=== PATIENT | female | born 2000 | race Caucasian/White ===

== ENCOUNTER 2023-08-16 18:04 | Emergency (ER) | payer MEDICAID, SELFPAY ==
[2023-08-16] VITALS (16 sets, daily range): BP systolic 128–133; BP diastolic 82–87; PULSE 97–114; RESP 13–25; TEMP 37.1; O2SAT 95–100; BMI 30.9
--- NOTE | 2023-08-16 18:18 | ECG_ITS ---
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
--- NOTE | 2023-08-16 18:23 | ED.CHESTPAI1 ---
HPI - Chest Pain General Chief Complaint: Chest Pain Stated Complaint: CHEST PAIN Time Seen by Provider: 08/16/23 18:12 Source: patient Mode of arrival: walk-in Limitations: no limitations History of Present Illness HPI narrative: Patient is a 23-year-old female who presents to the emergency department for the evaluation of headache, nausea, chest pain that began today. Patient was seen at urgent care prior to arrival and was instructed to come to the emergency department for CT scan because she has a family history of aortic dissection.She has had no fevers, cough, congestion, shortness of breath, vomiting, diarrhea. No other flulike illness or upper respiratory symptoms. She is not concerned for . She states she had similar symptoms in the past which were attributed to being dehydrated. She admits that she does not eat and drink as she should. She reports pain in the left anterior chest just midline to the axilla. This is not worse with deep breathing or movement. Related Data Home Medications Medication Instructions Recorded Confirmed escitalopram oxalate 20 mg tablet 20 mg PO DAILY 08/16/23 08/16/23 (Lexapro) Previous Rx's Medication Instructions Recorded ondansetron 4 mg disintegrating 4 mg PO Q6H PRN nausea and 08/16/23 tablet vomiting #12 tabs Allergies Allergy/AdvReac Type Severity Reaction Status Date / Time No Known Drug Allergies Allergy Verified 08/16/23 18:09 Review of Systems ROS Constitutional Denies: fever or chills Ears, nose, mouth, and throat Denies: throat pain or nasal congestion Cardiovascular Reports: chest pain Respiratory Denies: shortness of breath or cough Gastrointestinal Reports: nausea; Denies: abdominal pain or vomiting Musculoskeletal Denies: back pain Integumentary/Breast Denies: rash Neurological Denies: headache Endocrine Denies: excessive urination [facility] Social History Smoking status: Never smoker Exam Narrative Exam Narrative: Gen.: Awake, alert, in no distress Head: Normocephalic, atraumatic ENT: Moist mucous membranes Respiratory: No respiratory distress, lungs clear bilaterally Cardio: Tachycardia Extremities: Moves extremities equally, No pedal edema Psych: Normal mood and affect Neuro: No focal neuro deficit Skin: Warm, dry, intact Constitutional Vital Signs, click to edit/add: Last Vital Signs Temp 98.8 F 08/16/23 18:09 Pulse 103 H 08/16/23 20:00 Resp 19 08/16/23 20:00 BP 131/83 08/16/23 20:00 Pulse Ox 100 08/16/23 20:00 O2 Del Method Room Air 08/16/23 18:09 Course Vital Signs Vital signs: Vital Signs Temperature 98.8 F 08/16/23 18:09 Pulse Rate 102 H 08/16/23 18:09 Respiratory Rate 16 08/16/23 18:09 Blood Pressure 133/83 08/16/23 18:09 Pulse Oximetry 96 08/16/23 18:09 Oxygen Delivery Method Room Air 08/16/23 18:09 Temperature 98.8 F 08/16/23 18:09 Pulse Rate 103 H 08/16/23 20:00 Respiratory Rate 19 08/16/23 20:00 Blood Pressure 131/83 08/16/23 20:00 Pulse Oximetry 100 08/16/23 20:00 Oxygen Delivery Method Room Air 08/16/23 18:09 MDM - Chest Pain MDM Narrative Medical decision making narrative: Patient with normal D-dimer, 2 EKGs were performed due to artifact on the initial EKG. Patient had complete resolution of her symptoms after IV fluids and Zofran. I do not have any clinical suspicion that she is suffering from an aortic dissection given her vital signs and clinical exam. She is discharged home with Zofran as needed to follow-up with PCP. Return to the emergency department if symptoms change or worsen. Medical Records Data Attestation: I reviewed the patient's medical records. Lab Data Attestation: I reviewed the patient's lab results. Labs: Lab Results 08/16/23 Range/Units 18:27 WBC 18.2 H (4.0-11.0) 10^3/uL RBC 4.11 L (4.20-5.40) 10^6/uL Hgb 12.4 (12.0-16.0) g/dL Hct 37.9 (36.0-48.0) % MCV 92.2 (81.0-99.0) fL MCH 30.2 (26.7-34.0) pg MCHC 32.7 (29.9-35.2) g/dL RDW 13.2 (11.0-15.0) % Plt Count 299 (150-450) 10^3/uL MPV 9.8 (9.5-13.5) fL Neut % (Auto) 89.2 H (43.0-75.0) % Lymph % (Auto) 5.4 L (20.5-60.0) % [place] % (Auto) 4.7 (1.7-12.0) % Eos % (Auto) 0.1 L (0.9-7.0) % Baso % (Auto) 0.3 (0.2-2.0) % Neut # (Auto) 16.2 H (1.4-6.5) 10^3/uL Lymph # (Auto) 1.0 L (1.2-3.8) 10^3/uL [place] # (Auto) 0.9 H (0.3-0.8) 10^3/uL Eos # (Auto) 0.0 (0.0-0.7) 10^3/uL Baso # (Auto) 0.1 (0.0-0.1) 10^3/uL Abs Immat Gran (auto) 0.05 H (0.00-0.03) 10^3/uL Imm/Tot Granulo (auto) 0.3 (0.0-0.5) % PT 10.3 (9.0-11.6) sec INR 0.97 D-Dimer 0.33 (<=0.59) mg/L FEU Sodium 140 (136-145) mmol/L Potassium 3.6 (3.5-5.1) mmol/L Chloride 103 (98-107) mmol/L Carbon Dioxide 27.0 (21.0-32.0) mmol/L Anion Gap 13.6 BUN 11.0 (7.0-18.0) mg/dL Creatinine 0.68 (0.55-1.02) mg/dL Est GFR ( Amer) >60 (>=60) Est GFR (Non-Af Amer) >60 (>=60) BUN/Creatinine Ratio 16.2 Glucose 99 (74-106) mg/dL Calcium 9.3 (8.5-10.1) mg/dL Total Bilirubin 0.5 (0.2-1.0) mg/dL AST <5 L (15-37) U/L ALT 21 (14-59) U/L Alkaline Phosphatase 73 (46-116) U/L Troponin I High Sens <4.0 L (4.0-51.3) pg/mL NT-Pro-B Natriuret Pep 48.0 (<=450.0) pg/mL Total Protein 8.0 (6.4-8.2) g/dL Albumin 3.8 (3.4-5.0) g/dL Globulin 4.2 g/dL Albumin/Globulin Ratio 0.9 Serum HCG, Qual Negative (NEGATIVE) Imaging Data Chest x-ray: Attestation: I have reviewed the pertinent imaging results. Radiologist's impression: ITS Impressions Chest X-Ray 08/16/23 19:00 IMPRESSION: No acute pulmonary disease. Electronically authenticated by: LORENZA STEPHENSON Date: 08/16/2023 19:57 ECG Data Attestation: I personally reviewed and interpreted this ECG as follows: (Normal sinus rhythm at a rate of 97, sinus arrhythmia noted with no acute ST elevation or ectopy. EKG reviewed by attending physician) ECG interpretation date: 08/16/23 Heart Score History: Slightly/Non-Suspicious ECG: NS Repolarization Age: <45 years Risk Factors: 1 or 2 Risk Factors Troponin: <Normal Limit Total Heart Score Recommendations & Risks:: 2 Discharge Plan Discharge Chief Complaint: Chest Pain Clinical Impression: Chest pain Patient Disposition: Home, Self-Care Time of Disposition Decision: 20:05 Condition: Good Prescriptions / Home Meds: New ondansetron 4 mg tablet,disintegrating 4 mg PO Q6H PRN (Reason: nausea and vomiting) Qty: 12 0RF No Action escitalopram oxalate [Lexapro] 20 mg tablet 20 mg PO DAILY Instructions: Chest Pain (ED) Stand Alone Forms: Portal Instructions Referrals: Physician,Non-Staff, MD [Primary Care Provider] - 1 week
[2023-08-16] MEDS: ONDANSETRON PF 4 MG/2 ML VIAL IV (18:36)
[2023-08-16] MEDS: 0.9 % SODIUM CHLORIDE 1,000 ML 1000 ML IV (18:36)
[2023-08-16 18:38] LABS: Basophils Absolute Auto 0.1 10^3/uL (0.0-0.1); Basophils Percent Auto 0.3 % (0.2-2.0); Eosinophils Percent Auto 0.1 % (0.9-7.0); Hematocrit 37.9 % (36.0-48.0); Hemoglobin 12.4 g/dL (12.0-16.0); Immature Granulocytes Abs Auto 0.05 10^3/uL (0.00-0.03); Immature Granulocytes Pct Auto 0.3 % (0.0-0.5); Lymphocytes Percent Auto 5.4 % (20.5-60.0); Mean Corpuscular HGB Conc 32.7 g/dL (29.9-35.2); Mean Corpuscular Hemoglobin 30.2 pg (26.7-34.0); Mean Corpuscular Volume 92.2 fL (81.0-99.0); Mean Platelet Volume 9.8 fL (9.5-13.5); Monocytes Absolute Auto 0.9 10^3/uL (0.3-0.8); Monocytes Percent Auto 4.7 % (1.7-12.0); Neutrophils Absolute Auto 16.2 10^3/uL (1.4-6.5); Neutrophils Percent Auto 89.2 % (43.0-75.0); Platelet Count 299 10^3/uL (150-450); Red Blood Count 4.11 10^6/uL (4.20-5.40); Red Cell Distribution Width 13.2 % (11.0-15.0); White Blood Count 18.2 10^3/uL (4.0-11.0)
[2023-08-16 18:46] LABS: HCG Qualitative NEGATIVE (NEGATIVE)
[2023-08-16 18:50] LABS: Alanine Aminotransferase 21 U/L (14-59); Albumin Globulin Ratio 0.9; Albumin Level 3.8 g/dL (3.4-5.0); Alkaline Phosphatase 73 U/L (46-116); Anion Gap 13.6; Aspartate Amino Transferase <5 U/L (15-37); BUN Creatinine Ratio 16.2; Bilirubin Total 0.5 mg/dL (0.2-1.0); Calcium 9.3 mg/dL (8.5-10.1); Chloride 103 mmol/L (98-107); Estimated GFR (African America >60 (>=60); Estimated GFR (Non-African Ame >60 (>=60); Globulin 4.2 g/dL; Glucose 99 mg/dL (74-106); Potassium 3.6 mmol/L (3.5-5.1); Sodium 140 mmol/L (136-145)
[2023-08-16 18:51] LABS: D Dimer 0.33 mg/L FEU (<=0.59); INR 0.97; Prothrombin Time 10.3 sec (9.0-11.6)
[2023-08-16 18:58] LABS: Troponin I High Sensitivity <4.0 pg/mL (4.0-51.3)
--- NOTE | 2023-08-16 19:00 | XR_ITS ---
The [address] [address] Patient Name: VIKI DUNLAP MRN: [id number] date: 2000 Sex: F Assigned Patient Location: ER Current Patient Location: Accession/Order Number: [id number] Exam Date: 08/16/2023 19:14 Report Date: 08/16/2023 19:57 At the request of: FRANK GUTIÉRREZ Procedure: XR chest 1V EXAM: XR chest 1V TECHNIQUE: Single AP view chest HISTORY: Chest pain COMPARISON: None. FINDINGS: The heart and mediastinum are unremarkable. The lung hernandez are clear of any acute infiltrate, effusion or mass. No acute bony abnormality. Evaluation limited by low lung volumes. XR/XR chest 1V IMPRESSION: No acute pulmonary disease. Electronically authenticated by: LORENZA STEPHENSON Date: 08/16/2023 19:57
== END 2023-08-16 20:19 | disposition home or self-care (01) ==
PROVIDERS: Physician Assistant; Emergency Provider Emergency Medicine
DX: R07.9 Chest pain, unspecified (principal); Z79.899 Other long term (current) drug therapy
CPT/HCPCS: 36415; 71045; 80053; 83880; 84484; 84703; 85025; 85378; 85610; 93005; 96374; 99285; J2405

== ENCOUNTER 2023-10-05 17:11 | Emergency (ER) | payer MEDICAID, SELFPAY ==
[2023-10-05 17:25] VITALS: BP 130/79; PULSE 119; TEMP 37.4; O2SAT 97; BMI 30.7
--- OUTSIDE RECORDS SUMMARY | 2023-10-05 17:34 | XMS_ITS | CCD ---
Author Organization [facility] Care Team Providers Care Enrollment Representative Name Role Phone Unallocated, Noms Provider Unavailable [phone] NATI LEIVA Attending Unavailable JONNATHAN BARRAZA Attending Unavailab JONNATHAN Silverio Attending JONNATHAN Sauceda Attending Unavailab sherie Medications Current Medications Medication Drug Class(es) Dates Sig (Normalized) Sig (Original) escitalopram 20 mg oral tablet (2 sources) Serotonin Reuptake Inhibitor Start: 06-24-2023 take 1 tablet by mouth in the morning escitalopram (Lexapro) 20 MG tablet Indications: Moderately severe major depression (CMS/HCC) , MARIA DEL CARMEN (generalized anxiety disorder) (CMS/HCC) Take 1 tablet (20 mg) by mouth in the morning. 100 tablet 1 06/24/2023 Active Problems Active Problems Problem Classification Problem Date Documented Da te Episodic/Chronic Other lower respiratory disease (2 sources) Dyspnea; Translations: [Dyspnea, unspecified] 08-16-2023 Episodic Other nutritional; endocrine; and metabolic disorders (2 sources) Body mass index 30+ - obesity; Translations: [Body mass index (BMI) 36.0-36.9, adult] Onset: 04-17-2023 04-17-2023 Chronic Other nutritional; endocrine; and metabolic disorders (2 sources) Obesity caused by energy imbalance; Translations: [Other obesity due to excess calories] Onset: 04-17-2023 04-17-2023 Chronic Past or Other Problems Problem Classification Problem Date Documented Da te Episodic/Chronic Mood disorders (2 sources) Mood disorders Onset: 04-29-2023 04-29-2023 Vital Signs Date Time Vital Sign Value Performing Clinician Faci lity 08-16-2023 16:37-0500 Body mass index (BMI) [Ratio] 32.66 kg/m2 Nati Leiva [employer] Work Phone: [facility] 08-16-2023 16:37-0500 Body temperature 97.3 [degF] Nati Leiva [employer] Work Phone: [facility] 08-16-2023 16:37-0500 Body weight 86.3 kg Nati Leiva [employer] Work Phone: [facility] 08-16-2023 16:37-0500 Heart rate 117 /min Nati Leiva [employer] Work Phone: [facility] 08-16-2023 16:37-0500 SaO2% (BldA) [Mass fraction] 96 % Nati Leiva [employer]ER Work Phone: [facility] Healthcare Encounters Encounter Date Encounter Type Care Provider Facility Start: 09-26-2023 End: 09-26-2023 ambulatory JONNATHAN A KATEILLER Not Available Start: 08-16-2023 End: 08-16-2023 ambulatory NATI LEIVA Not Available Start: 08-16-2023 End: 08-16-2023 Office outpatient visit 10 minutes Nati Leiva [employer] Work Phone: [facility] Comment on above: Dyspnea, unspecified type (Primary Dx) Start: 06-24-2023 End: 06-24-2023 ambulatory JONNATHAN A DONNAMILLER Not Available Start: 05-27-2023 End: 05-27-2023 ambulatory JONNATHAN A DONNAMILLER Not Available Plan of Treatment Date Care Activity Detail Author Start: 09-24-2023 End: 09-24-2023 Patient encounter procedure 09/24/2023 8:00 AM EDT Office Visit [facility] [address] [place] [address] Jonnathan Barraza NP [address] [place] [address] [facility] Payers Date Payer Category Payer Medicaid [employer] [place] [place] [employer] [place] [place] [id number] 2023-Present [address] [address] [place] [address] [id number] 2023 Medicaid [id number] 2000 Unknown [id number] 2000 Unknown [id number] 2000 Unknown [id number] 2000 Unknown [id number] Social History Date Type Detail Facility Start: 04-29-2023 Tobacco smoking stat [facility] Never smoked tobacco [facility] Start: 04-29-2023 Tobacco use and exposure Smokeless t obacco non-user [facility] Start: 04-29-2023 End: 06-24-2023 History of Social function [facility] Start: 04-29-2023 End: 06-24-2023 Tobacco use panel [facility] Start: 2000 Sex Assigned At Not on file [facility] History of Present illness Narrative 08-16-2023 Nati Leiva NP - 08/16/2023 4:00 PM EST Note Date & Type Note Facility 08-16-2023 History of Presen t illness Narrative HPI: Historian of HPI: patient Shanel Mock is a 23 y.o. female who presents today to the Urgent Care with the following complaints and denials which have been present since this morning. C/O Denies Symptom Comments [] [x] Runny Nose [] [x] Difficulty Swallowing [] [x] Sore Throat [] [x] Cough [] [x] Ear Pain [] [x] Fever [] [x] Chills [x] [] Shortness of breath [] [x] Myalgia [] [x] Sinus Pain [] [x] Sinus Pressure Additional Comments: States the SOB is constant. Denies leg pain or swelling, denies control use, recent travel or smoking. Pt admits SOB. Pt admits L sided chest pain, nausea, lightheadedness. ROS: A complete system ROS was performed and negative aside from the pertinent positives noted in the HPI and PE. Examination General Examination: General Examination: in no acute distress, well developed, well nourished Head: normocephalic, atraumatic Eyes: no discharge Oral Cavity: mucosa moist Throat: pharynx with erythema and PND. No trismus, muffled voice, drooling or protrusion of soft palate. Uvula midline Neck/Thyroid: neck supple, trachea midline Skin: warm and dry Heart: no murmur. tachycardic. Lungs: clear anteriorly and posteriorly, clear to auscultation bilaterally, good air movement, no wheezes, rales, rhonchi Chest: normal shape and expansion, normal anteroposterior (AP) diameter Psych: alert, oriented. 1. Dyspnea, unspecified type Discussed need to present to ER immediately for further workup based on c/o today. Discussed importance of ER visit today and pt and family member verb understanding. Pt to ER at this time I'm stable condition. documented in this encounter [facility] Evaluation note Note Date & Type Note Facility Evaluation note Diagnosis Dyspnea, unspecified type- Primary documented in this encounter [facility] Summary Purpose Family History No Family History Records Found Advance Directives No Advanced Directives Records Found Additional Source Comments Care Teams (unrecognized sec tion and content) Enrollment Representative Relationship Specialty Start Date End Date Unallocated, Noms Provider [address] [place] [address] 01/01/23 INFORMATION SOURCE (unrecogn ized section and content) DATE CREATED AUTHOR 09/27/2023 [facility] FOR RECORDS PERTAINING TO PATIENTS WHO ARE OR HAVE BEEN ENROLLED IN A CHEMICAL DEPENDENCY/SUBSTANCEABUSE PROGRAM, SOME INFORMATION MAY BE OMITTED. This clinical summary was aggregated from multiple sources. Caution should be exercised in using it in the provision of clinical care. This summary normalizes information from multiple sources, and as a consequence, information in this document may materially change the coding, format and clinical context of patient data. In addition, data may be omitted in some cases. CLINICAL DECISIONS SHOULD BE BASED ON THE PRIMARY CLINICAL RECORDS. [facility]. provides no warranty or guarantee of the accuracy or completeness of information in this document.
[2023-10-05] MEDS: IBUPROFEN 600 MG TABLET PO (17:42)
[2023-10-05 17:58] LABS: Influenza Virus A Antigen Negative; Influenza Virus B Antigen Negative; Internal Control Within Normal Limits; SARS-CoV-2 Ag NEGATIVE (NEGATIVE); Strep A Antigen Screen Negative
--- NOTE | 2023-10-05 18:06 | ED.FEVER1 ---
HPI - Fever General Chief Complaint: Fever Stated Complaint: Fever Time Seen by Provider: 10/05/23 17:30 Source: patient Mode of arrival: walk-in History of Present Illness HPI Narrative: 23-year-old female presents with a chief complaint of cough and fever. She states she had low-grade fever at home. She was exposed to influenza last week. Patient is otherwise healthy no acute distress Related Data Home Medications ?Medication ?Instructions ?Recorded ?Confirmed escitalopram oxalate 20 mg tablet 20 mg PO DAILY 08/16/23 08/16/23 (Lexapro) Previous Rx's ?Medication ?Instructions ?Recorded ondansetron 4 mg disintegrating 4 mg PO Q6H PRN nausea and 08/16/23 tablet vomiting #12 tabs Allergies Allergy/AdvReac Type Severity Reaction Status Date / Time No Known Drug Allergies Allergy Verified 08/16/23 18:09 Review of Systems ROS Narrative All Systems are negative except as noted/marked.All systems reviewed and otherwise negative PFSH PFS Social History Smoking status: Never smoker Exam Narrative Exam Narrative: Nurses note and vital signs reviewed and patient is not hypoxic. General: The patient appears well and in no apparent distress. Patient is resting comfortably on cart. Skin: Warm, dry, no pallor noted. There is no rash noted. Head: Normocephalic, atraumatic Eye: Normal conjunctiva, no drainage, EOMI. PERRL Ears, Nose, Mouth, and Throat: oral mucosa is moist. Nares patent. Mouth without vesicles. Ear canals patent. Tm's without Erythema Cardiovascular: Regular Rate and Rhythm Respiratory: Patient is in no distress, no accessory muscle use, lungs are clear to auscultation, no wheezing, rales or rhonchi Musculoskeletal: The patient has no evidence of calf tenderness, no pitting edema, symmetrical pulses noted bilaterally Neurological: A&O x4, normal speech Psychiatric: Cooperative Constitutional Vital Signs, click to edit/add: Last Vital Signs Temp 99.3 F 10/05/23 17:25 Pulse 119 H 10/05/23 17:25 Resp 18 10/05/23 17:25 BP 130/79 10/05/23 17:25 Pulse Ox 97 10/05/23 17:25 O2 Del Method Room Air 10/05/23 17:25 Course Vital Signs Vital signs: Vital Signs Temperature 99.3 F 10/05/23 17:25 Pulse Rate 119 H 10/05/23 17:25 Respiratory Rate 18 10/05/23 17:25 Blood Pressure 130/79 10/05/23 17:25 Pulse Oximetry 97 10/05/23 17:25 Oxygen Delivery Method Room Air 10/05/23 17:25 Temperature 99.3 F 10/05/23 17:25 Pulse Rate 119 H 10/05/23 17:25 Respiratory Rate 18 10/05/23 17:25 Blood Pressure 130/79 10/05/23 17:25 Pulse Oximetry 97 10/05/23 17:25 Oxygen Delivery Method Room Air 10/05/23 17:25 MDM - Fever MDM Narrative Medical decision making narrative: Patient presenting here with chief complaint of upper respiratory-like symptoms, for show sore throat began earlier today. She was exposed to influenza last week and was concerned. Influenza swab, strep and COVID are negative. Patient looks well here today she will be discharged home follow-up primary care physician. No further workup necessary Medical Records Attestation: I reviewed the patient's medical records. Lab Data Attestation: I reviewed the patient's lab results. Labs: Lab Results 10/05/23 Range/Units 17:32 Influenza Type A Ag Negative Influenza Type B Ag Negative SARS-CoV-2 Ag (CV2AG) Negative (NEGATIVE) Streptococcus Screen Negative Discharge Plan Discharge Stand Alone Forms: Portal Instructions Chief Complaint: Fever Clinical Impression: URI, acute Patient Disposition: Home, Self-Care Time of Disposition Decision: 18:05 Condition: Good Prescriptions / Home Meds: No Action escitalopram oxalate [Lexapro] 20 mg tablet 20 mg PO DAILY ondansetron 4 mg tablet,disintegrating 4 mg PO Q6H PRN (Reason: nausea and vomiting) Qty: 12 0RF Print Language: Gabonese Instructions: Upper Respiratory Infection (DC) Referrals: Physician,Non-Staff, MD [Primary Care Provider] - 1 week
== END 2023-10-05 18:14 | disposition home or self-care (01) ==
PROVIDERS: Physician Assistant; Emergency Provider Emergency Medicine
DX: J06.9 Acute upper respiratory infection, unspecified (principal); Z79.899 Other long term (current) drug therapy; Z20.822 Contact with and (suspected) exposure to COVID-19
CPT/HCPCS: 87070; 87150; 87186; 87804; 87811; 87880; 99283